=== PATIENT | male | born 1960 | race Caucasian/White ===

== ENCOUNTER 2019-01-23 18:15 | Observation (INO) ==
[2019-01-23] MEDS ORDERED: NS 1,000 ML IV ONE (18:25)
[2019-01-23] MEDS ORDERED: ZOFRAN IM ONE (18:27)
[2019-01-23 18:53] LABS: BASO# 0.03 X1000 (0.0-0.2); BASO% 0.1 % (0.0-0.8); EOS# 0.25 X1000 (0.0-0.7); HEMATOCRIT 49.1 % (42.0-52.0); HEMOGLOBIN 17.5 g/dL (14.0-18.0); IMM GRAN# 0.08 X1000 (0.0-0.04); IMM GRAN% 0.3 % (0.0-0.5); LYMPH# 4.73 X1000 (1.2-3.4); LYMPH% 18.5 % (20.5-51.1); MCH 29.9 PG (27-31); MCHC 35.6 g/dL (33-37); MCV 83.9 FL (81-99); MONO# 1.32 X1000 (0.11-0.59); MONO% 5.2 % (1.7-9.3); NEUT# 19.09 X1000 (1.4-6.5); NEUT% 74.9 % (42.2-75.2); PLT 313 X1000 (130-400); RBC 5.85 XMIL (4.7-6.1); RDW 12.5 % (11.5-14.5)
[2019-01-23 19:14] LABS: AGAP 20; BUN 19 mg/dL (8-22); CHLORIDE 99 mmol/L (98-107); COSMO 288; GLUCOSE 208 mg/dL (70-104); POTASSIUM 3.9 mmol/L (3.5-5.1); SODIUM 140 mmol/L (136-145); TCO2 21 mmol/L (25-35)
[2019-01-23 19:15] LABS: ALB/GLOB RATIO 1.4; ALBUMIN 4.7 g/dL (3.5-5.0); ALKALINE PHOSPHATASE 87 U/L (32-122); AMYLASE 116 U/L (20-200); CALCIUM 9.7 mg/dL (8.8-10.2); CREATININE 1.1 mg/dL (0.7-1.2); ESTIMATED GFR > 60; GOT 23 U/L (10-34); GPT 23 U/L (10-44); LIPASE 269 U/L (13-60); MAGNESIUM 1.7 mg/dL (1.5-2.7); TOTAL BILIRUBIN 0.61 mg/dL (0.20-1.00)
--- NOTE | 2019-01-23 19:37 | PROVIDER DOCUMENTATION ---
This chart was entered by Ranjana Cedeño Scribe, acting as scribe for Tania Donis MD. HPI-Abdominal Pain/GI Problem - General Source: patient, RN/MD, EMS - History of Present Illness-ABD Nature of Presenting Problems: pt is a 58 yowm c/o n/d, and weakness x 3 days. pt arrived via ems and sts pt is hypotensive 81/57 enroute. rn sts pt had syncopal episode. pt is actively vomiting in er on arrival, ems sts poss positional changes could have caused vomiting. pt denies abd sx. has hx DM II. fsbs today 144. 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 Quality of Pain: reports: none Severity in ED: reports: mild Onset/Duration: reports: 3 days ago Timing: reports: still present Modifying Factors: improves with: movement Associated Symptoms: reports: diarrhea, nausea, vomiting, weakness Last BM: unsure <Tania Donis - Last Filed: 01/23/19 19:37> <Matty Ortiz - Last Filed: 01/23/19 22:32> - General Stated Complaint: syncope Time Seen by Provider: 01/23/19 18:24 Allergies/Adverse Reactions: Patient Allergies Allergy/AdvReac Type Severity Reaction Status Date / Time No Known Allergies Allergy Verified 01/23/19 18:42 Home Medications: Home Medication List Medication Instructions Recorded Confirmed Last Taken Type ATORVAstatin [Lipitor] 20 mg PO QHS 01/23/19 01/23/19 01/22/19 History Insulin Glargine,Hum.rec.anlog 14 unit SQ DAILY 01/23/19 01/23/19 01/23/19 Hist ory [Lantus Solostar] Metformin [Glucophage] 1,000 mg PO WBREAKFAST 01/23/19 01/23/19 01/23/19 History Review of Systems - Adult - REVIEW OF SYSTEMS - ADULT Constitutional: reports: no symptoms reported. denies: fever, fatique, night sweats Eyes: reports: no symptoms reported Ears, Nose, Mouth & Throat: reports: no symptoms reported Cardiovascular: reports: see HPI, syncope, other (hypotensive). denies: chest pain, orthopnea, palpitations Respiratory: reports: no symptoms reported. denies: cough, pleurisy, shortness of breath, wheezing Gastrointestinal: reports: see HPI, diarrhea, nausea, vomiting. denies: abdom inal pain, hematemesis, constipation, difficulty swallowing Genitourinary: reports: no symptoms reported Musculoskeletal: reports: see HPI, muscle weakness. denies: frequent leg cramps, joint pain, joint swelling Integumentary: reports: no symptoms reported Neurological: reports: see HPI, syncope. denies: loss of balance, paresthesia, seizure Psychiatric: reports: no symptoms reported Endocrine: reports: no symptoms reported Hematologic/Lymphatic: reports: no symptoms reported Allergic/Immunologic: reports: no symptoms reported All Other Systems: Reviewed and Negative <Tania Donis - Last Filed: 01/23/19 19:37> Past History - Adult - PAST MEDICAL HISTORY-ADULT Review of Records: reports: Nursing Assessment Review, Medications Reviewed, Social history reviewed & non-contributory. Major Childhood Illnesses: reports: denies history Cardiovascular: reports: denies history Respiratory: reports: denies history Gastrointestinal: reports: denies history Obstetrical/Gynecological: reports: denies history Genitourinary: reports: denies history Musculoskeletal: reports: denies history Neurological: reports: denies history Endocrine/Immune: reports: Diabetes Diabetes Type: Type 2 Other Conditions: reports: denies history - IMMUNIZATION STATUS Childhood Immunizations: See Nurse Assessment Flu Vaccine: See Nurse Assessment - FAMILY HISTORY Family History: reviewed, not pertinent <Tania Donis - Last Filed: 01/23/19 19:37> Physical Exam-General - PHYSICAL EXAM-ADULT Initial Vital Signs Reviewed: Yes - CONSTITUTIONAL General Appearance: alert, mild distress. negative: lethargic, slow to respond, obtunded, combative - EYES Eyes: PERRL/EOMI, pink conjunctivae - HEAD, EARS, NOSE, MOUTH & THROAT HENMT: normocephalic/atraumatic, moist mucous membranes, normal ENT inspection - NECK Neck: non-tender, full range of motion, supple, normal inspection - RESPIRATORY Respiratory: chest non-tender, lungs clear, normal breath sounds - CARDIOVASCULAR Cardiovascular: normal peripheral pulses, regular rate, rhythm - GASTROINTESTINAL (ABDOMEN) Abdominal Exam: normal bowel sounds, non tender, soft, no organomegaly, no pulsatile mass. negative: abnormal bowel sounds, distended, rigid, rebound, tenderness - LYMPHATIC Lymphatic: no adenopathy - MUSCULOSKELETAL Back Exam: normal inspection, no CVA tenderness, no vertebral tenderness Extremity: normal range of motion, non-tender, normal inspection Peripheral Pulses: radial (R): 2+, radial (L): 2+ - SKIN Integumentary: normal color, normal turgor, warm/dry - NEUROLOGIC Neurologic: grossly normal, no motor/sensory deficits - PSYCHIATRIC Psych/Mental Status: normal mood/affect, normal thought content, normal thought process, oriented x 3 <Tania Donis - Last Filed: 01/23/19 19:37> Progress - PLAN OF CARE/RESULTS Result Diagrams: 01/23/19 18:29 01/23/19 18:29 - REASSESSMENT Reassessment #1 Time Reassessed: 18:29 Status: improving (pt has discontinued vomiting, a&ox3 and less toxic in appearance) - CHANGE OF SHIFT REPORT (ED Provider) 1 Report Given and Care Transferred to:: [facility] Time of Transfer: 20:00 Items Pending: CT/MRI Results, Pain Control, Other ([employer]NAGEMENT) <Tania Donis - Last Filed: 01/23/19 19:37> - PLAN OF CARE/RESULTS Progress/Plan/Lab Results: Vital Signs - 8 hr 01/23/19 18:24 01/23/19 18:31 01/23/19 19:01 Temperature 98.0 F Pulse Rate 84 80 81 Respiratory Rate 18 17 Blood Pressure 121/90 115/84 116/84 O2 Sat by Pulse Oximetry 95 92 L 93 L 01/23/19 19:15 01/23/19 19:30 01/23/19 19:31 Temperature Pulse Rate 81 81 80 Respiratory Rate 18 Blood Pressure 141/92 O2 Sat by Pulse Oximetry 97 97 95 01/23/19 19:32 01/23/19 19:45 01/23/19 20:00 Temperature Pulse Rate 79 79 91 H Respiratory Rate 20 23 23 Blood Pressure O2 Sat by Pulse Oximetry 98 97 97 01/23/19 20:01 Temperature Pulse Rate 85 Respiratory Rate 23 Blood Pressure 148/103 O2 Sat by Pulse Oximetry 98 Laboratory Results - last 24 hr 01/23/19 01/23/19 01/23/19 18:29 18:29 18:30 WBC 25.50 H RBC 5.85 Hgb 17.5 Hct 49.1 MCV 83.9 MCH 29.9 MCHC 35.6 RDW Std Deviation 12.5 Plt Count 313 MPV 10.0 Immature Gran % (Auto) 0.3 Neut % (Auto) 74.9 Lymph % (Auto) 18.5 L [place] % (Auto) 5.2 Eos % (Auto) 1.0 Baso % (Auto) 0.1 Immature Gran # (Auto) 0.08 H Neut # (Auto) 19.09 H Lymph # (Auto) 4.73 H [place] # (Auto) 1.32 H Eos # (Auto) 0.25 Baso # (Auto) 0.03 Sodium 140 Potassium 3.9 Chloride 99 Carbon Dioxide 21 L Anion Gap 20 BUN 19 Creatinine 1.1 Estimated GFR/1.73 m2 > 60 BUN/Creatinine Ratio 17 Glucose 208 H POC Glucose 186 H Calculated Osmolality 288 Calcium 9.7 Magnesium 1.7 Total Bilirubin 0.61 AST 23 ALT 23 Alkaline Phosphatase 87 Total Protein 8.0 Albumin 4.7 Globulin 3.3 Albumin/Globulin Ratio 1.4 Amylase 116 Lipase 269 H Urine Source Urine Color Urine Turbidity Urine pH Ur Specific [place] Urine Protein Ur Glucose (Stick) Ur Ketones (Stick) Urine Blood Urine Nitrite Urine Bilirubin Urobilinogen Dipstick Urine Leukocytes Urine WBC (Auto) Urine RBC (Auto) U Epithel Cells (Auto) Urine Bacteria (Auto) 01/23/19 20:37 WBC RBC Hgb Hct MCV MCH MCHC RDW Std Deviation Plt Count MPV Immature Gran % (Auto) Neut % (Auto) Lymph % (Auto) [place] % (Auto) Eos % (Auto) Baso % (Auto) Immature Gran # (Auto) Neut # (Auto) Lymph # (Auto) [place] # (Auto) Eos # (Auto) Baso # (Auto) Sodium Potassium Chloride Carbon Dioxide Anion Gap BUN Creatinine Estimated GFR/1.73 m2 BUN/Creatinine Ratio Glucose POC Glucose Calculated Osmolality Calcium Magnesium Total Bilirubin AST ALT Alkaline Phosphatase Total Protein Albumin Globulin Albumin/Globulin Ratio Amylase Lipase Urine Source CLEAN CATCH Urine Color YELLOW Urine Turbidity CLEAR Urine pH 6.0 Ur Specific [place] 1.036 Urine Protein TRACE A Ur Glucose (Stick) 150 A Ur Ketones (Stick) NEGATIVE Urine Blood NEGATIVE Urine Nitrite NEGATIVE Urine Bilirubin NEGATIVE Urobilinogen Dipstick NORMAL Urine Leukocytes NEGATIVE Urine WBC (Auto) <10 Urine RBC (Auto) <10 U Epithel Cells (Auto) <10 Urine Bacteria (Auto) NEGATIVE Orders Category Date Time Status CT ABD/PELVIS W/IV CONT ONLY [CT] Stat Exams 01/23/19 18:27 Taken AMYLASE [CHEM] Stat Lab 01/23/19 18:29 Completed CBC WITH ELECTRONIC DIFF [HEME] Stat Lab 01/23/19 18:29 Completed COMPREHENSIVE METABOLIC PANEL [CHEM] Stat Lab 01/23/19 18:29 Completed LIPASE [CHEM] Stat Lab 01/23/19 18:29 Completed MAGNESIUM [CHEM] Stat Lab 01/23/19 18:29 Completed URINALYSIS [URINALYSIS] Stat Lab 01/23/19 20:37 Results 0.9% Sodium Chloride Inj [Ns] 1,000 ml Med 01/23/19 18:25 Discontinued IV 999 mls/hr Ondansetron [Zofran] Med 01/23/19 18:27 Discontinued 4 mg IM NOW ONE Ondansetron [Zofran] Med 01/23/19 20:53 Once 4 mg IV NOW ONE Result Diagrams: 01/23/19 18:29 01/23/19 18:29 - REASSESSMENT Reassessment #1 Status: improving Reassessment #2 Time Reassessed: 21:17 Status: unchanged (A sign out to me by Dr donis. patient reports nausea, has elevated lipase and wbc. xray reveals b/l pulmonary infiltrate. 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 Heart size is top normal. The colon is diffusely fluid-filled, with no formed stool. There are numerous diverticula of the sigmoid colon and descending colon. Otherwise, no bowel obstruction or inflammation. Normal appendix. Urinary bladder, prostate, and rectum are normal. Hernia repair mesh in the left inguinal region. There is moderate fatty change of the liver. There are cholecystectomy clips. Otherwise abdominal organs are all normal. Bones are intact. IMPRESSION: 1. Diffusely fluid-filled colon consistent with a diarrheal illness. 2. Diverticulosis coli. 3. Hepatic steatosis. 4. Moderate dependent atelectasis or infiltrates bilaterally. This exam was performed using automated exposure control, adjustment of mA or kV according to patient size, and/or use of iterative reconstruction technique) - CONSULTS/PCP/HOSPITALIST Notification #1 *Consult/PCP/Hospitalist*: [place] Time Discussed: 21:21 Consult Disposition: Admit (accepted admission) <Matty Ortiz S. - Last Filed: 01/23/19 22:32> Departure - Departure Date of Disposition Decision: 01/23/19 Certified Medical Emergency: Emergent - Critical Care Note This patient required my direct & personal management of CC.: No <Tania Donis - Last Filed: 01/23/19 19:37> - Departure Time of Disposition Decision: 21:21 Certified Medical Emergency: Emergent - Critical Care Note This patient required my direct & personal management of CC.: No <Matty Ortiz S. - Last Filed: 01/23/19 22:32> - Departure DIAGNOSIS: Pancreatitis Qualifiers: Chronicity: acute Pancreatitis type: unspecified pancreatitis type Acute pancreatitis complication: unspecified Qualified Code(s): K85.90 - Acute pancreatitis without necrosis or infection, unspecified Pneumonia Qualifiers: Pneumonia type: due to unspecified organism Laterality: bilateral Lung l ocation: lower lobe of lung Qualified Code(s): J18.1 - Lobar pneumonia, unspecified organism Disposition: ADMITTED INPATIENT 09 Condition: Fair Attestation - Physician/ IKE Attestation Patient care was provided by Advanced Practice Provider:: No The physician spent face to face time with patient:: Yes Advanced Practice Provider documentation review:: Supervising physician onsite and consulted in the evaluation and care of this patient. The physician did have a face to face encounter with the patient. <Tania Donis - Last Filed: 01/23/19 19:37> This chart was documented by the indicated scribe, (Ranjana Cedeño Scribe) and accurately reflects the services I performed and decisions made by me, Tania Donis MD, as attested by the provider's signature.
[2019-01-23 20:46] LABS: URINE SOURCE CLEAN CATCH
[2019-01-23 20:52] LABS: BILIRUBIN URINE NEGATIVE (NEGATIVE); BLOOD URINE NEGATIVE (NEGATIVE); COLOR YELLOW; GLUCOSE URINE 150 mg/dL (NEGATIVE); KETONE URINE NEGATIVE (NEGATIVE); LEUKOCYTES URINE NEGATIVE (NEGATIVE); NITRITE URINE NEGATIVE (NEGATIVE); PROTEIN URINE TRACE mg/dL (NEGATIVE); SP GRAVITY URINE 1.036; TURBIDITY URINE CLEAR (CLEAR); UROBILINOGEN URINE NORMAL (NORMAL)
[2019-01-23 20:53] LABS: UR EPITHELIAL CELLS <10 /HPF (<10); URINE BACTERIA NEGATIVE /HPF; URINE RBC <10 /HPF (<10); URINE WBC <10 /HPF (<10)
[2019-01-23] MEDS ORDERED: ZOFRAN IV ONE (20:53)
--- NOTE | 2019-01-23 20:53 | Diag Imaging Result Doc PS360 ---
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 Heart size is top normal. The colon is diffusely fluid-filled, with no formed stool. There are numerous diverticula of the sigmoid colon and descending colon. Otherwise, no bowel obstruction or inflammation. Normal appendix. Urinary bladder, prostate, and rectum are normal. Hernia repair mesh in the left inguinal region. There is moderate fatty change of the liver. There are cholecystectomy clips. Otherwise abdominal organs are all normal. Bones are intact. IMPRESSION: 1. Diffusely fluid-filled colon consistent with a diarrheal illness. 2. Diverticulosis coli. 3. Hepatic steatosis. 4. Moderate dependent atelectasis or infiltrates bilaterally. This exam was performed using automated exposure control, adjustment of mA or kV according to patient size, and/or use of iterative reconstruction technique Electronically signed by Jose L Castaneda 01/23/2019 8:50 PM
[2019-01-23] MEDS ORDERED: LR 1,000 ML IV ONE (21:37)
[2019-01-23 22:05] LABS: HEMOGLOBIN A1C 8.5 % (4.8-6.0)
[2019-01-23] MEDS ORDERED: ZOFRAN IV PRN (22:08)
[2019-01-23] MEDS ORDERED: TYLENOL PO PRN (22:08)
[2019-01-24] MEDS: LR 1,000 ML IV SCH ×4 (00:15→14:28)
[2019-01-24] MEDS: LEVAQUIN 750 MG/D5W 750 MG/150 ML IVPB IV SCH ×2 (00:15→22:41)
[2019-01-24] MEDS: LIPITOR PO SCH ×2 (00:16→22:41)
--- NOTE | 2019-01-24 02:59 | HISTORY AND PHYSICAL ---
CHIEF COMPLAINT: Nausea and diarrhea with weakness x3 days. HPI: This is a 58-year-old male who came in today related to nausea and diarrhea with weakness x3 days. Patient said he became hypotensive and a syncopal spell. Did not fall and did not hit his head. He started having vomiting today on arrival. He states that position changes are causing him to have increased vomiting. Patient has a past medical history of diabetes mellitus type 2 and hyperlipidemia. Laboratory data showed leukocytosis, elevated lipase of 269. A CT scan of his abdomen showed atelectasis or infiltrates in bilateral lung bases, diffusely fluid-filled colon consistent with diarrheal illness, and hepatic steatosis. At any rate, the patient is noted to be fluid volume depleted and will be admitted for further evaluation and treatment. PAST MEDICAL HISTORY: See HPI. PREVIOUS SURGICAL HISTORY: Cholecystectomy and finger surgery. SOCIAL HISTORY: He works for the [employer] department. No tobacco, alcohol or illicit drugs. FAMILY HISTORY: Positive for coronary artery disease in first degree relatives. ALLERGIES: NO KNOWN DRUG ALLERGIES. HOME MEDICATIONS: 1. Lantus 14 units subcutaneously daily. 2. Metformin 1000 mg p.o. with breakfast. 3. Atorvastatin 20 mg p.o. at bedtime. REVIEW OF SYSTEMS: A 14-point review of systems is conducted with the patient. Pertinent positives noted above in the HPI. All other systems reviewed and found to be negative. PHYSICAL EXAMINATION: VITAL SIGNS: Temperature 98 degrees, pulse 85, respirations 23, blood pressure 148/103, oxygen saturation 98% on room air. GENERAL: Pleasant 58-year-old male lying in the ER stretcher, answers all questions appropriately. Alert and oriented x3. HEENT: Head is atraumatic, normocephalic. Pupils are equal, round, react to light. Extraocular eye movements intact. Sclerae anicteric. Conjunctiva pink. Oral mucosa is dry. NECK: Supple. No JVD. No thyromegaly. TRACHEA: Midline. No cervical lymphadenopathy. CARDIAC: S1, S2 appreciated. No murmurs, gallops, rubs. LUNGS: Clear to auscultation bilaterally. No rhonchi, wheezes, rales. Symmetric rise and fall of respirations. ABDOMEN: Soft, nondistended, tender mainly in the epigastric area. No rebound or tenderness. No guarding. Bowel sounds present all 4 quadrants, normoactive. No pulsatile masses or organomegaly. EXTREMITIES: No clubbing, cyanosis or edema. Decreased pulses all 4 extremities. GENITOURINARY: No bladder distention. Patient voids. Otherwise deferred. NEUROLOGICAL: Alert and oriented x3. Cranial nerves 2-12 appear to be grossly intact. DIAGNOSTIC DATA: For CT report please see HPI. LABORATORY DATA: WBC 25.50, hemoglobin 17.5, hematocrit 49.1, platelet count 313,000. Sodium 140, potassium 3.9, chloride 99, carbon dioxide 21, BUN 19, creatinine 1.1, glucose 208. Lipase 269. Urine unremarkable. ASSESSMENT AND PLAN: 1. Bilateral lower lobe infiltrates consistent with possible pneumonia. Will cover with Levaquin 750 mg IV q.24h. 2. Probable acute pancreatitis. Patient has lipase that is elevated 3 times the upper limit. Will give him a bolus of lactated Ringer's. Continue lactated Ringer's 150 mL per hour. 3. Diabetes mellitus type 2, now insulin dependent with hyperglycemia. Check hemoglobin A1c, sliding scale insulin with fingerstick blood sugar. Will hold long-acting insulin as the patient is not eating at this time. 4. Nausea, vomiting, diarrhea. This is likely secondary to gastritis. If it is bacterial in origin this will be covered with Levaquin. 5. Hyperlipidemia. Continue Atorvastatin. 6. Nausea, vomiting, diarrhea. Will give Zofran as needed. 7. Further recommendations based on patient's clinical course. Dictated by JASPAL Arredondo for Jay Rubio MD cc: JASPAL Arredondo MD Independent assessment and plan done at bedside with SECONDARY SPECIAL EDUCATION TEACHER. Plan above discussed at bedside with SECONDARY SPECIAL EDUCATION TEACHER and patient. Etiology of pancreatitis yet to be determined. Recommend checking A1c to assess degree of pancreatic damage causing DM. MTDD
[2019-01-24] MEDS: HUMALOG SUBQ SCH ×4 (06:57→22:40)
[2019-01-24 07:15] LABS: BASO# 0.01 X1000 (0.0-0.2); BASO% 0.1 % (0.0-0.8); EOS# 0.14 X1000 (0.0-0.7); EOS% 1.2 % (0.0-10.0); HEMATOCRIT 39.9 % (42.0-52.0); HEMOGLOBIN 14.4 g/dL (14.0-18.0); IMM GRAN# 0.02 X1000 (0.0-0.04); IMM GRAN% 0.2 % (0.0-0.5); LYMPH# 1.46 X1000 (1.2-3.4); MCH 30.7 PG (27-31); MCHC 36.1 g/dL (33-37); MCV 85.1 FL (81-99); MONO# 0.66 X1000 (0.11-0.59); MONO% 5.4 % (1.7-9.3); MPV 9.8 FL (7.4-10.4); NEUT# 9.85 X1000 (1.4-6.5); NEUT% 81.1 % (42.2-75.2); PLT 221 X1000 (130-400); RBC 4.69 XMIL (4.7-6.1); RDW 12.4 % (11.5-14.5); WBC 12.14 X1000 (4.8-10.8)
[2019-01-24 07:41] LABS: AGAP 13; BUN 19 mg/dL (8-22); CALCIUM 8.5 mg/dL (8.8-10.2); CHLORIDE 101 mmol/L (98-107); COSMO 281; ESTIMATED GFR > 60; GLUCOSE 160 mg/dL (70-104); POTASSIUM 3.8 mmol/L (3.5-5.1); SODIUM 138 mmol/L (136-145); TCO2 24 mmol/L (25-35)
--- NOTE | 2019-01-24 09:28 | Diag Imaging Result Doc PS360 ---
CHEST-2 VIEWS - 01/24/2019 INDICATION: pneumonia COMPARISON: None FINDINGS: There is an implanted cardiac device. There is mild cardiomegaly. Pulmonary vascularity is normal. Lung volumes are severely low. There are some increased markings in the left lower lobe suggesting bronchitis or possible pneumonia. No pneumothorax or pleural effusion. IMPRESSION: Nonspecific findings. Electronically signed by Jose L Castaneda 01/24/2019 9:26 AM
--- NOTE | 2019-01-24 22:20 | PROGRESS NOTE ---
DATE: 01/24/2019 SUBJECTIVE: The patient is resting comfortably in bed. He states that his diarrhea has slowed down. He was able to tolerate a clear liquid diet without any difficulty. OBJECTIVE: Vital Signs: Temperature 99 degrees, blood pressure 144/93, heart rate 82, respirations 20, O2 saturation 96% on room air. General: This is an elderly male lying in bed in no acute distress. Heart: S1, S2 normal. Regular rate and rhythm. Lungs: Clear to auscultation bilaterally. Abdomen: Positive bowel sounds. Soft, nontender, nondistended. Extremities: No edema. No cyanosis. Neurologic: The patient is alert and oriented x3. LABS: White blood cell count 12. Sodium 138, potassium 3.8, chloride 101, CO2 of 24, BUN 19, creatinine 1. Glucose 160. ASSESSMENT AND PLAN: 1. Acute gastroenteritis. Slowly improving. The patient is having less diarrhea and he has tolerated a full liquid diet without any difficulty. We will advance the patient's diet as tolerated. Continue with IV fluids until diarrhea stops. 2. Uncontrolled insulin-dependent diabetes mellitus. We will continue with sliding scale insulin at this time. 3. Deep vein thrombosis prophylaxis. We will start the patient on Lovenox. cc: Gena Garcia MD MTDDhara
[2019-01-25] MEDS: HUMALOG SUBQ SCH ×2 (06:48→12:45)
[2019-01-25] MEDS ORDERED: SYNTHROID PO SCH (07:00)
[2019-01-25 07:30] LABS: HEMATOCRIT 40.6 % (42.0-52.0); HEMOGLOBIN 14.5 g/dL (14.0-18.0); MCHC 35.7 g/dL (33-37); MCV 86.8 FL (81-99); MPV 9.5 FL (7.4-10.4); RBC 4.68 XMIL (4.7-6.1); RDW 12.5 % (11.5-14.5); WBC 9.04 X1000 (4.8-10.8)
[2019-01-25 07:47] LABS: AGAP 14; ALB/GLOB RATIO 1.4; ALBUMIN 3.6 g/dL (3.5-5.0); ALKALINE PHOSPHATASE 64 U/L (32-122); BUN 10 mg/dL (8-22); CALCIUM 8.6 mg/dL (8.8-10.2); CHLORIDE 102 mmol/L (98-107); COSMO 280; ESTIMATED GFR > 60; GLUCOSE 160 mg/dL (70-104); GOT 13 U/L (10-34); GPT 16 U/L (10-44); LIPASE 14 U/L (13-60); POTASSIUM 3.9 mmol/L (3.5-5.1); SODIUM 139 mmol/L (136-145); TCO2 23 mmol/L (25-35); TOTAL BILIRUBIN 0.66 mg/dL (0.20-1.00); TOTAL PROTEIN 6.1 g/dL (6.3-8.3)
[2019-01-25 07:52] LABS: CHOLESTEROL 110 mg/dL (0-200); HDL 33 mg/dL (35-55); LDL 63 mg/dL; TRIGLYCERIDES 71 mg/dL (39-160); VLDL 14 mg/dL
[2019-01-25] MEDS: NS 1,000 ML IV SCH ×2 (08:34→12:46)
[2019-01-25] MEDS ORDERED: LOVENOX SUBQ SCH (09:00)
[2019-01-25] MEDS ORDERED: CULTURELLE PO SCH (09:00)
[2019-01-25 11:30] VITALS: BP 110/71
[2019-01-25] MEDS ORDERED: PNEUMOVAX 23 IM ONE (13:15)
--- NOTE | 2019-02-07 16:16 | DISCHARGE SUMMARY ---
ADMISSION DATE: 01/23/2019 DISCHARGE DATE: 01/25/2019 FINAL DISCHARGE DIAGNOSES: 1. Acute gastroenteritis. 2. Dehydration. 3. Uncontrolled insulin-dependent diabetes mellitus. HOSPITAL COURSE: Mr. Yun is a 58-year-old male with a history of insulin-dependent diabetes, who presented to the ER with nausea, vomiting and diarrhea. On admission, the patient was noted to be dehydrated. He was admitted to the hospitalist service and started on aggressive IV fluid hydration. Stool studies were ordered. However, the patient's GI symptoms improved with IV fluid hydration. The patient was noted to have pneumonia, and was treated with antibiotics during the hospitalization as well. The patient's diet was slowly advanced. He was ultimately cleared for discharge home on 01/25/2019. DISCHARGE MEDICATIONS: 1. Lactobacillus 1 tablet oral twice a day. 2. Augmentin 875/125 one tab oral twice a day x5 days. 3. Lipitor 20 mg oral at bedtime. 4. Lantus 14 units subcutaneous daily. 5. Metformin 1000 mg oral with breakfast. 6. Synthroid 50 mcg oral every morning. DISCHARGE DIET: 1800 ADA diet. ACTIVITY: As tolerated. FOLLOWUP INSTRUCTIONS: The patient will need to follow up with his primary care physician's physician Dr. Saucedo in 1 to 2 weeks. cc: Gena Garcia MD
== END 2019-01-25 13:36 | disposition home or self-care (01) ==
LOC: SUPCPDRO → ED 18:15 → INTOOBSV 21:35 → SUATTDRO 21:35 → 4N 21:35
PROVIDERS: ATTEND Internal Medicine